=== PATIENT | female | born 1935 | race Caucasian/White ===

== ENCOUNTER 2016-12-06 12:01 | Outpatient (CLI) | payer OTHER ==
[~2016-12-06 12:01] MED LIST: BIOTIN1000 MCG PO; CARAFATE EQUIVAL1 GM PO; ECHINACEA400 MG PO; LOVASTATIN20 MG PO; MAGNESIUM400 M1 PO; NORCO1 TA1 PO; PROTONIX40 MG PO; VITAMIN C500 M1 PO; VITAMIN D-31000 UNIT PO
--- NOTE | 2016-12-06 12:51 | DIAGNOSTIC IMAGING REPORT ---
PROCEDURE: XR CHEST 2 VIEW INDICATION: ACUTE BRONCHITIS TECHNIQUE: PA and lateral views. COMPARISON: Chest and abdomen film 06/18/2015 FINDINGS: heart size at the upper limits of normal. No central vascular congestion. Hyperinflated, hyperlucent lungs with mild scarring at the left lung base. Calcified right breast prosthesis. No effusion IMPRESSION: 1. No acute infiltrates
== END 2016-12-06 23:00 ==
LOC: XR SRH 12:01
DX: J20.9 Acute bronchitis, unspecified (principal)